=== PATIENT | female | born 1955 | race Asian ===

== ENCOUNTER 2018-04-27 07:21 | Day surgery (SDC) | payer OTHER ==
[2018-04-27] MEDS: PREDNISOLONE ACET 1% 5 ML OPH OPER (08:41)
[2018-04-27] MEDS: PHENYLephrine 2.5% 15 ML OPH OPER (08:41)
[2018-04-27] MEDS: MOXIFLOXACIN 0.5% 3 ML OPH OPER (08:41)
[2018-04-27] MEDS: TROPICAMIDE 1% 3 ML OPH OPER (08:43)
[2018-04-27] MEDS: PROPARACAINE 0.5% 15 ML OPH OPER (08:44)
[2018-04-27] MEDS ORDERED: MIDAZOLAM 1 MG/ML 2 ML INJ (09:35)
[2018-04-27] MEDS ORDERED: BUPIVACAINE 0.5% (SDV) 30 ML INJ (10:01)
[2018-04-27] MEDS ORDERED: EPINEPHrine 1 MG INJ (10:01)
[2018-04-27] MEDS ORDERED: CARBACHOL 0.01% 1.5 ML OPH INJ (10:02)
[2018-04-27 10:06] LABS: ALANINE AMINOTRANSFERASE 38 IU/L (13-69); ALBUMIN 4.1 g/dl (3.3-4.9); ALBUMIN/GLOBULIN RATIO 1.02; ALKALINE PHOSPHATASE 72 IU/L (42-121); ANION GAP 14 (8-16); ASPARTATE AMINO TRANSFERASE 61 IU/L (15-46); BILIRUBIN,INDIRECT 0.2 mg/dl (0-1.1); BILIRUBIN,TOTAL 0.2 mg/dl (0.2-1.3); BLOOD UREA NITROGEN 18 mg/dl (7-20); CALCIUM 9.5 mg/dl (8.4-10.2); CARBON DIOXIDE 22 mmol/L (21-31); CHLORIDE 109 mmol/L (97-110); CREATININE 0.98 mg/dl (0.44-1.00); GLUCOSE 114 mg/dl (70-220); SODIUM 139 mmol/L (135-144); TOTAL PROTEIN 8.1 g/dl (6.1-8.1)
[2018-04-27] MEDS ORDERED: LABETALOL HCL 20MG INJ (10:27)
[2018-04-27] MEDS ORDERED: FENTAnyl 50 MCG/ML VIAL IV (10:30)
[2018-04-27] MEDS ORDERED: LABETALOL HCL 20MG INJ IV (10:30)
[2018-04-27] MEDS ORDERED: ONDANSETRON 4 MG INJ IV (10:30)
[2018-04-27] MEDS ORDERED: PROPOFOL 20 ML (10:31)
[2018-04-27 11:00] LABS: POTASSIUM 6.1 mmol/L (3.5-5.1)
[2018-04-27] MEDS ORDERED: SOD CHLORIDE 0.9% 1,000 ML IV (12:00)
== END 2018-04-27 12:34 | disposition home or self-care (01) ==
LOC: SDS 07:21
DX: H25.89 Other age-related cataract (principal); E03.9 Hypothyroidism, unspecified; E78.5 Hyperlipidemia, unspecified; E11.9 Type 2 diabetes mellitus without complications; I10 Essential (primary) hypertension
CPT/HCPCS: 66984; 80053; 82962

== ENCOUNTER 2018-05-25 07:27 | Day surgery (SDC) | payer OTHER ==
[2018-05-25] MEDS: PROPARACAINE 0.5% 15 ML OPH OPER (08:50)
[2018-05-25] MEDS: PREDNISOLONE ACET 1% 5 ML OPH OPER (08:51)
[2018-05-25] MEDS: TROPICAMIDE 1% 3 ML OPH OPER (08:52)
[2018-05-25] MEDS: SOD CHLORIDE 0.9% 1,000 ML IV (08:52)
[2018-05-25] MEDS: PHENYLephrine 2.5% 15 ML OPH OPER (08:52)
[2018-05-25] MEDS: MOXIFLOXACIN 0.5% 3 ML OPH OPER (08:52)
[2018-05-25] MEDS ORDERED: EPINEPHrine 1 MG INJ (10:10)
[2018-05-25] MEDS ORDERED: ALBUTEROL 0.083% (NEB) 2.5 MG/3 ML AMP HHN (10:30)
[2018-05-25] MEDS ORDERED: DIPHENHYDRAMINE 50 MG INJ IV (10:30)
[2018-05-25] MEDS ORDERED: LABETALOL HCL 20MG INJ IV (10:30)
[2018-05-25] MEDS ORDERED: ACETAMINOPHEN 1000MG/100ML IV 100 ML IVPB (10:30)
[2018-05-25] MEDS ORDERED: ONDANSETRON 4 MG INJ IV (10:30)
[2018-05-25] MEDS ORDERED: hydrALAzine 20 MG INJ IV (10:30)
[2018-05-25] MEDS ORDERED: OXYCODONE/ACETAMINOPHEN (5/325) TAB PO (10:30)
[2018-05-25] MEDS ORDERED: MIDAZOLAM 1 MG/ML 2 ML INJ (10:31)
[2018-05-25] MEDS ORDERED: PROPOFOL 20 ML (10:31)
== END 2018-05-26 12:47 | disposition home or self-care (01) ==
LOC: SDS 07:27
DX: H25.12 Age-related nuclear cataract, left eye (principal); I10 Essential (primary) hypertension; E11.9 Type 2 diabetes mellitus without complications
CPT/HCPCS: 66984; 82962